=== PATIENT | female | born 1970 | race Caucasian/White ===

== ENCOUNTER 2019-12-18 17:01 | Observation (INO) ==
[2019-12-18 17:40] LABS: Basophils # 0.1 10*3/uL (0.0-0.2); Basophils % 0.6 % (0.0-0.8); Eosinophils # 0.1 10*3/uL (0.0-0.87); Eosinophils % 0.6 % (0.00-10.9); Hematocrit 44.6 VOL% (35.7-47.0); Hemoglobin 14.8 GM/DL (12.0-16.0); Immature Granulocytes % 0.2 %; Immature Granulocytes Absolute 0.02 #; Lymphocytes # 2.8 10*3/uL (1.4-4.0); Lymphocytes % 26.4 % (21.3-54.2); Mean Corpuscular HGB Conc 33.2 GM/DL (32-36); Mean Corpuscular Volume 86.3 FL (87-102); Mean Platelet Volume 10.2 FL (9.6-12.0); Neutrophils % 63.2 % (38.7-73.9); Platelet Count 290 T/CUMM (130-400); Red Blood Count 5.17 MC/CUMM (3.8-5.5); Red Cell Distribution Width 13.2 % (9.3-17.3); White Blood Count 10.6 T/CUMM (4-12)
[2019-12-18 18:01] LABS: Calcium 9.2 MG/DL (8.5-10.1); Osmolality,Calculated 275.5 MOS/KG (273-304); Total Protein 7.9 G/DL (6.4-8.3)
[2019-12-18] MEDS ORDERED: NITROGLYCERIN 2% OINT 1 INCH/GM PACK TOP STA (18:29)
[2019-12-18] MEDS ORDERED: ASPIRIN 325 MG TABLET PO STA (18:29)
[2019-12-18] MEDS ORDERED: ONDANSETRON 4 MG/2 ML VIAL IV STA (18:29)
[2019-12-18] MEDS ORDERED: ALUM/MAG/SIMETH/LIDO VISC 1:1 30 ML BOTTLE PO STA (18:29)
[2019-12-18] MEDS ORDERED: MORPHINE 4 MG/1 ML VIAL IV STA (18:29)
[2019-12-18] MEDS ORDERED: PANTOPRAZOLE 40 MG VIAL IV STA (18:29)
[2019-12-18] MEDS ORDERED: ONDANSETRON 4 MG/2 ML VIAL IV PRN (20:42)
[2019-12-18] MEDS ORDERED: MORPHINE 4 MG/1 ML VIAL IV PRN (20:42)
[2019-12-18] MEDS ORDERED: ENOXAPARIN 40 MG/0.4 ML SYRINGE SUBCUT SCH (21:00)
[2019-12-18] MEDS ORDERED: GLUCAGON 1 MG VIAL IM PRN (21:47)
[2019-12-18] MEDS ORDERED: DEXTROSE 10% 250 ML BAG IV PRN (21:47)
[2019-12-19] MEDS: NITROGLYCERIN 2% OINT 1 INCH/GM PACK TOP SCH ×3 (00:25→11:46)
[2019-12-19 05:03] LABS: Risk Ratio 3.63; VLDL CHOLESTEROL 22.6 MG/DL
[2019-12-19] MEDS ORDERED: KETOROLAC 30 MG/1 ML VIAL IV ONE (10:40)
[2019-12-19] MEDS ORDERED: KETOROLAC 10 MG TABLET PO PRN (10:40)
[2019-12-19] MEDS ORDERED: ACETAMINOPHEN 325 MG TABLET PO SCH (11:00)
[2019-12-19] MEDS: GABAPENTIN 100 MG CAPSULE PO SCH ×2 (11:45→16:54)
[2019-12-19 15:46] VITALS: BP 108/60
== END 2019-12-19 17:53 | disposition home or self-care (01) ==
LOC: N.ED 17:01 → N.EDINP 17:01 → N.TELES 12-19 08:34
PROVIDERS: ADMIT Internal Medicine; ATTEND Internal Medicine

== ENCOUNTER 2022-06-07 10:39 | Observation (INO) ==
[2022-06-07] MEDS ORDERED: ASPIRIN CHEW 81 MG TABLET PO STA (11:19)
[2022-06-07] MEDS ORDERED: ALUM/MAG/SIMETH/LIDO VISC 1:1 30 ML BOTTLE PO STA (11:19)
[2022-06-07 11:30] LABS: Basophils # 0.1 10*3/uL (0.0-0.2); Basophils % 0.7 % (0.0-0.8); Eosinophils # 0.1 10*3/uL (0.0-0.87); Eosinophils % 1.1 % (0.00-10.9); Hematocrit 44.1 VOL% (35.7-47.0); Hemoglobin 14.3 GM/DL (12.0-16.0); Immature Granulocytes % 0.4 %; Immature Granulocytes Absolute 0.03 #; Lymphocytes # 2.8 10*3/uL (1.4-4.0); Lymphocytes % 38.6 % (21.3-54.2); Mean Corpuscular HGB Conc 32.4 GM/DL (32-36); Mean Corpuscular Volume 88.7 FL (87-102); Mean Platelet Volume 10.4 FL (9.6-12.0); Monocytes # 0.5 10*3/uL (0.11-0.8); Monocytes % 6.4 % (1.7-12.7); Neutrophils % 52.8 % (38.7-73.9); Platelet Count 238 T/CUMM (130-400); Red Blood Count 4.97 MC/CUMM (3.8-5.5); Red Cell Distribution Width 13.2 % (9.3-17.3); White Blood Count 7.2 T/CUMM (4-12)
[2022-06-07 11:51] LABS: Albumin 3.8 G/DL (3.4-5.0); Bilirubin,Total 0.5 MG/DL (0.20-1.00); Calcium 9.3 MG/DL (8.5-10.1); Osmolality,Calculated 278.5 MOS/KG (273-304); Potassium 4.3 MMOL/L (3.5-5.1)
[2022-06-07 12:03] LABS: Thyroid Stimulating Hormone 1.17 uIU/ml (0.358-3.74)
[2022-06-07] MEDS ORDERED: MAGNESIUM SULF RIDER 2 GM/50 ML PREMIX IV PRN (12:59)
[2022-06-07] MEDS ORDERED: MAGNESIUM SULF RIDER 4 GM/100 ML PREMIX IV PRN (12:59)
[2022-06-07] MEDS ORDERED: ONDANSETRON 4 MG/2 ML VIAL IV PRN (12:59)
[2022-06-07 14:12] VITALS: BP 111/67
[2022-06-08] MEDS ORDERED: PANTOPRAZOLE 40 MG TABLET PO SCH (09:00)
== END 2022-06-07 14:19 | disposition home or self-care (01) ==
LOC: N.ED 10:39 → N.EDINP 10:39
PROVIDERS: ADMIT Internal Medicine Cardiovascular Disease; ATTEND Internal Medicine Cardiovascular Disease